=== PATIENT | male | born 1995 | race Caucasian/White ===

== ENCOUNTER 2016-11-06 09:38 | Inpatient (IN) | payer BC, OTHER ==
[~2016-11-06] VITALS: Ht 172.7 cm; Wt 61.2 kg
[2016-11-06] MEDS ORDERED: MAG HYDROX/AL HYDROX/SIMETH 30 ML LIQUID UDC PO PRN (22:45)
[2016-11-06] MEDS ORDERED: ONDANSETRON ODT 4 MG TAB.RAPDIS SL PRN (22:45)
[2016-11-06] MEDS ORDERED: LORAZEPAM 2 MG/1 ML VIAL IM PRN (22:45)
[2016-11-06] MEDS ORDERED: IBUPROFEN 600 MG TABLET PO PRN (22:45)
[2016-11-06] MEDS ORDERED: ONDANSETRON 4 MG/2 ML VIAL IM PRN (22:45)
[2016-11-06] MEDS ORDERED: HYDROXYZINE PAMOATE 25 MG CAPSULE PO PRN (22:45)
[2016-11-06] MEDS ORDERED: PROMETHAZINE HCL 25 MG TABLET PO PRN (22:45)
[2016-11-06] MEDS ORDERED: LOPERAMIDE HCL 2 MG CAPSULE PO PRN ×2 (22:45)
[2016-11-06] MEDS ORDERED: BUPRENORPHINE HCL 2 MG TAB.SUBL SL PRN (22:45)
[2016-11-06] MEDS ORDERED: diphenhydrAMINE 50 MG CAPSULE PO PRN (22:45)
[2016-11-06] MEDS ORDERED: MAGNESIUM HYDROXIDE 30 ML LIQUID UDC PO PRN (22:45)
[2016-11-06] MEDS ORDERED: DICYCLOMINE HCL 20 MG TABLET PO PRN (22:45)
[2016-11-06] MEDS ORDERED: LORAZEPAM 1 MG TABLET PO PRN (22:45)
[2016-11-06] MEDS ORDERED: MIRALAX 17 GM POWD.PACK PO PRN (22:45)
[2016-11-06] MEDS ORDERED: ACETAMINOPHEN 325 MG TABLET PO PRN (22:45)
[2016-11-06] MEDS ORDERED: METHOCARBAMOL 750 MG TABLET PO PRN (22:45)
--- NOTE | 2016-11-06 23:00 | NUR ---
PRE-ADMISSION NOTE: Patient assessed in intake office at 2300 on 11/06/2016. Patient is ambulatory with steady gate, stable, alert and oriented x4, speech is clear and soft. Patient states that he is here to safety detox from Heroin. Patient states that his last use was: Heroin IV : "0.2 grams at 0900 on 11/06/2016". Patient reports allergies to Compazine (Prochlorperazine). CIWA 7. Patient presented with anxiety, agitation, nervousness, tremors, barely sweating, restless legs, and fatigue. Patient denies SI/HI. Patient denies Seizures Hx. VS: T: 98'4; BP: 110/66; HR: 91; RR: 19; O2 SAT: 99%, pain level:"0/10". Patient instructed on unit protocol of vitals Q4H and COWS/CIWA assessments. Patient verbalized understanding and agreement. Patient also instructed on policy regarding destruction of any controlled substances/prescriptions brought to facility, and handling of all medications. Patient verbalized understanding and agreement. Will complete admission assessment when patient is brought up to unit.
[2016-11-06 23:05] LABS: *AMPHETAMINE, URINE NEGATIVE (NEGATIVE); *BARBITURATE, URINE NEGATIVE (NEGATIVE); *CANNABINOID, URINE POSITIVE (NEGATIVE); *COCCAINE, URINE NEGATIVE (NEGATIVE); *OPIATE, URINE POSITIVE (NEGATIVE); *PHENCYCLIDINE SCREEN,URINE NEGATIVE (NEGATIVE)
[2016-11-06 23:06] VITALS: BP 118/76
--- NOTE | 2016-11-06 23:06 | NUR ---
ADMISSION NOTE: New admission is a 21 years old male who arrived to [facility] at 2306 on 11/06/16 for medically supervised detox. Patient admitted under the care of Harish Philip MD. Pre-assessment completed in intake. Harish Philip MD assessed patient in intake office, and aware for patient condition.Patient reports allergies to Compazine. Patient placed on Full Code, Regular Diet, Fall and Seizures Precautions. Patients reports Seizures Hx " r/t epilepsy in 2013". UDS Test provided. Patient is ambulatory with steady gate, stable, AOx4, speech is soft and clear. Patient is 68 in, and weights 140lb. PMH: anxiety, depression, Epilepsy, Substance abuse. VS: T: 98'4; BP: 110/66; HR: 91; RR: 19; O2 SAT: 99%, pain level:"0/10". Respirations unlabored and even. Patient denies SOB and chest pain. Lungs Sounds are clear bilaterally. Bowel Sounds active in all x4 quadrants. Last Bowel Movement was "11/06/16t 1200". PERRLA, brisk capillary refill, hand brush filler equal and strong. Body check performed by BHT and skin check performed by nurse. Skin is intact, warm and dry to touch. Patient states that he is here to safety detox from Heroin. Patient appears mildly intoxicated and answers questions appropriately. CIWA 7. Patient presented with anxiety, agitation, nervousness, tremors, barely sweating, restless legs, and fatigue. Patient denies SI/HI. Patient states that he "relapsed 2 years ago ", and his substance use has steadily increased since that time. History of Substance Use: Heroin IV : "0.5 grams every day since 2014. Last use 0.2 gram at 0900 on 11/06/2016". Patient reports smoking 20 cigarettes daily since"2011". Written smoking cessation education provided. Patient Verbalizes understanding. Patient brought in home medications: Divalproex Sod. ER. PCP: "Urmila Hurst MD". Encouraged fluids as tolerated. Patient oriented to floor and room, explained how to use call light. Patient verbalized understanding. Safety measures on place. Call light within reach, bed in lowest position and locked, padded rails up bilaterally rails up bilaterally. Will continue to monitor closely. Addendum: 11/07/16 at 0447 by WILVER DYER RN COWS 7.
[2016-11-06] MEDS ORDERED: DIVA500T54 PO (23:17)
[2016-11-06 23:48] LABS: BASOPHILS % (AUTO) 0.4 % (0.0-2.0); EOSINOPHILS # (AUTO) 0.1 K/uL (0.0-0.7); EOSINOPHILS % (AUTO) 1.7 % (0.0-7.0); HEMATOCRIT 45.8 % (40-50); HEMOGLOBIN 15.7 G/DL (14.0-18.0); LYMPHOCYTES # (AUTO) 1.6 K/UL (0.8-4.8); LYMPHOCYTES % (AUTO) 21.5 % (20.5-51.5); MEAN CORPUSCULAR HEMOGLOBIN 29.8 UUG (27.0-31.0); MEAN CORPUSCULAR HGB CONC 34 g/dL (32.0-37.0); MEAN CORPUSCULAR VOLUME 86.7 FL (82.0-92.0); MONOCYTES # (AUTO) 0.4 K/UL (0.1-1.30); MONOCYTES % (AUTO) 5.2 % (0.0-11.0); NEUTROPHILS # (AUTO) 5.4 K/UL (1.8-8.9); NEUTROPHILS % (AUTO) 71.2 % (38.5-71.5); PLATELET COUNT (AUTO) 255 K/UL (150-450); RED BLOOD CELL COUNT(AUTO) 5.28 MIL/UL (4.7-6.1); WHITE BLOOD COUNT (AUTO) 7.5 K/UL (4.0-11.2)
[2016-11-06 23:54] LABS: BILIRUBIN,TOTAL 0.4 mg/dL (0.2-1.0); CREATININE 1.1 mg/dL (0.6-1.3); MAGNESIUM 2.1 mg/dL (1.8-2.4); POTASSIUM 4.2 mmol/L (3.5-5.1); TOTAL PROTEIN, SERUM 7.5 g/dL (6.4-8.2)
[2016-11-07] VITALS: BP 113/77
--- NOTE | 2016-11-07 00:32 | NUR ---
PRN BENADRYL 50 MG 1 CAP PO ADMINISTRATED Patient c/o insomnia and ask aid. PRN Benadryl 50 mg 1 cap PO administrated as ordered with full glass of water. Patient tolerated well. All needs met. Safety measures on place. Call light within reach, bed in lowest position and locked, padded rails up bilaterally rails up bilaterally. Will continue to monitor closely.
[2016-11-07] MEDS ORDERED: diphenhydrAMINE 50 MG CAPSULE ONE (00:41)
--- NOTE | 2016-11-07 01:32 | NUR ---
RE-ASSESSMENT Patient is sleeping. RR:16. Respirations even and unlabored. PRN Benadryl PO was effective. All needs met. Safety measures on place. Call light within reach, bed in lowest position and locked, padded rails up bilaterally rails up bilaterally. Will continue to monitor closely.
[2016-11-07 04:00] VITALS: BP 97/58
--- NOTE | 2016-11-07 06:58 | NUR ---
END OF SHIFT NOTE Patient endorsed to dayshift nurse in stable condition. Report given. Patient is a 21 years old male admitted to [facility] for Opioid dependence on 11/06/16, placed on PRN Medications. Patient admitted under the care of Dr. Morrell, Harish Diaz MD. Patient reports allergies to Compazine. Patient placed on Full Code, Regular Diet, Fall and Seizures Precautions. Patients reports Seizures Hx " r/t epilepsy in 2013". PMH: Anxiety, Depression, Epilepsy, Seizures r/t Epilepsy, Substance abuse, Tobacco dependence. VS at 0400: T: 98'7; BP: 97/58; HR: 75; RR: 12; O2 SAT: 100%, pain level:"0/10". Respirations unlabored and even. Patient denies SOB and chest pain. Skin is intact, warm and dry to touch. Patient appears mildly intoxicated. Last COWS decreased from 7 to 5 at 0400 . Patient presented with anxiety, agitation, nervousness, tremors, barely sweating, restless legs, and fatigue. Patient denies SI/HI. Patient states that he "relapsed 2 years ago ", and his substance use has steadily increased since that time. History of Substance Use: Heroin IV : "0.5 grams every day since 2014. Last used 0.2 gram at 0900 on 11/06/2016". Patient reports smoking 20 cigarettes daily since "2011". Written smoking cessation education provided. Patient Verbalizes understanding. Encouraged fluids as tolerated. PRN Benadryl PO administrated for insomnia was effective. Patient slept 4 hours 30 minutes, intake 300 ml, voided x1. All needs met. Safety measures on place. Call light within reach, bed in lowest position and locked, padded rails up bilaterally rails up bilaterally.
--- NOTE | 2016-11-07 07:10 | NUR ---
Start of shift note Pt was admitted for opiate dependence. Pt has a PMHx of epilepsy, anxiety and depression. Pt is a full code, on a regular diet and reports an allergy to compazine. Pt is on fall and seizure precautions. Pt had one PRN medication per the prior nurse. Pt is currently resting in bed, pt has no complaints at this time. Pt is on PRN medication at this time. Will continue to monitor pt. All needs addressed at this time. Bed is locked in a low position, call light within reach, side rails up x 2.
[2016-11-07 08:00] VITALS: BP 146/73
[2016-11-07] MEDS ORDERED: TUBERCULIN,PURIF.PROT.DERIV. 5 TU/0.1 ML TEST ID ONE (09:00)
[2016-11-07] MEDS ORDERED: PATIENT MAY USE OWN MED- MD OK PO SCH (09:00)
[2016-11-07] MEDS: MULTIVITAMINS,THERAPEUTIC TABLET PO SCH (10:39)
[2016-11-07] MEDS: BUPRENORPHINE HCL 2 MG TAB.SUBL SL SCH ×3 (10:40→21:16)
--- NOTE | 2016-11-07 10:46 | NUR ---
Positive Benzo/Cannibis Pt states that he took 1mg of xanax yesterday and that he smokes "an 8 ball of marijuana daily". Pt states that he takes xanax "very infrequently and I haven't taken it for a long time".
--- NOTE | 2016-11-07 10:54 | NUR ---
PRN administration Pt c/o anxiety, administered PRN vistaril per MD order. Will continue to monitor pt.
--- NOTE | 2016-11-07 11:54 | NUR ---
Reassessment Pt states that the vistaril was effective in alleviating his high level of anxiety. Pt states that the medication was slightly effective. Will continue to monitor pt. Pt is ambulating around the unit.
[2016-11-07 12:00] VITALS: BP 134/84
--- NOTE | 2016-11-07 15:23 | NUR ---
MD communication Pt states that he would like a medication for sleeping, notified Dr Cooper, ordered trazodone 50mg PO QHSPRN. Orders entered, unable to enter orders.
[2016-11-07] MEDS ORDERED: TRAZODONE 50 MG TABLET PO PRN (15:30)
[2016-11-07 17:04] VITALS: BP 123/79
[2016-11-07] MEDS: CLONIDINE HCL 0.1 MG TABLET PO PRN (17:29)
--- NOTE | 2016-11-07 17:34 | NUR ---
PRN administration PRN administration Pt c/o muscle aches 9/10 and anxiety, administered PRN clonidine and robaxin per MD order. Will continue to monitor pt. All other needs addressed at this time.
--- NOTE | 2016-11-07 18:34 | NUR ---
Reassessment Pt states that his pain level is down to a 3/10 and that his anxiety level is better. Pt states that the medications were effective. Will continue to monitor pt.
--- NOTE | 2016-11-07 19:00 | NUR ---
End of shift note Pt was admitted for opiate dependence. Pt has a PMHx of epilepsy and Dr Morrell is restarting his depakote tonight. Pt 5 day subutex taper was initiated during the shift. Pt is tolerating well. Pt had a PRN vistrail, a PRN clonidine and a PRN robaxin with effectiveness. Dr Cooper was called during the shift, and pt has been ordered PRN trazodone. Pt drank 2300 ml of fluids during the shift, ate none of his breakfast, ate none of lunch, and 75% of dinner. Pt had 4 voids and 1 BMs during the shift. Pt states that he feels comfortable at this time. Pt has a recent COWS of 7 at 1600. Will endorse SBAR to oncoming shift. All needs addressed at this time.
[2016-11-07 20:00] VITALS: BP 117/78
--- NOTE | 2016-11-07 20:00 | NUR ---
Start of Shift Pt is a 21 year old male admitted for Opiate dependence, placed on 5 day Subutex taper. Pt reported using Heroin 0.5g/daily x3 months, Marijuana " a bowl a day" and Xanax intermittently. PMH: depression, anxiety and Epilepsy - pt is on Depakote. Pt is allergic to Compazine, regular diet, fall/seizure precautions and full code. Upon assessment, pt reports feeling anxious, restless, muscle/joint aches throughout body, chills, skin is flushed/clammy, respirations even/unlabored, denies SOB/chest pain, denies n/v/d, bowel sounds x4, abdomen soft. Safety measures in place, call light within reach, side rails up x2, bed locked and in low position. Will continue to monitor.
--- NOTE | 2016-11-07 21:25 | NUR ---
PRN Administration Pt reports difficulty falling asleep, requests aid. Trazodone 50mg PRN administered. Safety measures in place, will continue to monitor.
--- NOTE | 2016-11-07 22:25 | NUR ---
PRN Reassessment Upon reassessment, pt is sleeping, respirations even/unlabored. No s/s of acute distress noted. Safety measures in place. Will continue to monitor.
[2016-11-08] VITALS: BP 120/75
[2016-11-08 04:00] VITALS: BP 112/79
--- NOTE | 2016-11-08 04:00 | NUR ---
Vital Signs BP 112/79, pulse 77, resp 16, SpO2 97%, temp 98.1, no pain 0/10 COWS deferred d/t pt sleeping, to assess while pt is awake as ordered. Safety measures in place. Will continue to monitor.
--- NOTE | 2016-11-08 07:00 | NUR ---
End of Shift Pt is a 21 year old male admitted for Opiate dependence, placed on 5 day Subutex taper. Pt reported using Heroin 0.5g/daily x3 months, Marijuana " a bowl a day" and Xanax intermittently. PMH: depression, anxiety and Epilepsy - pt is on Depakote. Pt is allergic to Compazine, regular diet, fall/seizure precautions and full code. During shift, pt reported feeling anxious, restless, muscle/joint aches throughout body, chills, skin is flushed/clammy - scheduled taper medications administered, COWS 7. Trazodone 50mg PRN administered for sleep, effective. Pt slept for 9 hours, intake of 355 ml PO, voids x2 and stool x0 . Safety measures in place, call light within reach, side rails up x2, bed locked and in low position. Endorsed to day shift nurse.
--- NOTE | 2016-11-08 07:10 | NUR ---
Start Of Shift Report received. Pt is a 21 year old male admitted for Opiate dependence. PMH: depression, anxiety and Epilepsy - pt is on Depakote. Pt is full code regular diet on fall and seizure precautions. Pt is allergic to Compazine. Pt placed on a 5 day Subutex taper. Last COWS 7 taken at 0400. Pt receive PRN Trazodone 50mg for sleep, medication effective per security shift manager nurse. Pt slept for a total of 9 hours. Safety measures in place, call light within reach, side rails up x2, bed locked and in low position. Will continue to monitor and provide care.
[2016-11-08 08:00] VITALS: BP 110/71
[2016-11-08 08:09] LABS: HEPATITIS B SURFACE AG Negative (Negative)
[2016-11-08] MEDS ORDERED: BUPRENORPHINE HCL 2 MG TAB.SUBL SL SCH (09:00)
[2016-11-08] MEDS: MULTIVITAMINS,THERAPEUTIC TABLET PO SCH (09:29)
[2016-11-08] MEDS ORDERED: BACLOFEN 10 MG TABLET PO ONE (10:45)
[2016-11-08] MEDS ORDERED: BUPRENORPHINE HCL 2 MG TAB.SUBL SL ONE (10:45)
[2016-11-08] MEDS ORDERED: GABAPENTIN 300 MG CAPSULE PO ONE (10:45)
[2016-11-08] MEDS ORDERED: KETOROLAC TROMETHAMINE 30 MG INJ IM PRN (11:15)
[2016-11-08 12:00] VITALS: BP 116/78
[2016-11-08] MEDS ORDERED: BACLOFEN 10 MG TABLET PO SCH (15:00)
[2016-11-08] MEDS: BACLOFEN 20 MG TABLET PO SCH ×2 (15:45→20:31)
[2016-11-08] MEDS: BUPRENORPHINE HCL 2 MG TAB.SUBL SL SCH ×2 (15:45→20:31)
[2016-11-08] MEDS: GABAPENTIN 300 MG CAPSULE PO SCH ×2 (15:45→20:31)
[2016-11-08 16:00] VITALS: BP 119/70
--- NOTE | 2016-11-08 19:13 | NUR ---
End Of Shift Report given. Pt is a 21 year old male admitted for Opiate dependence. PMH: depression, anxiety and Epilepsy - pt is on Depakote. Pt is full code regular diet on fall and seizure precautions. Pt is allergic to Compazine. Pt placed on a 5 day Subutex taper, VS monitored closely q 4 hours. Withdrawal symptoms were closely monitored. Initial COWS 6. Patient encouraged adequate PO fluid intake as tolerated. Patient presented with tremors and anxiety during the day. Last COWS 5. Per patient, Subutex has been helping him with his withdrawal symptoms. Pt ate all of his meals. No PRN medications given during the day. Patient encouraged to attend group therapies/sessions to learn new coping skills to recent relapse, patient denies SI/HI. Participated in group and therapy sessions. All needs met and attended.
[2016-11-08 20:00] VITALS: BP 146/79
--- NOTE | 2016-11-08 20:00 | NUR ---
Start of Shift Pt is a 21 year old male admitted for Opiate dependence, placed on 5 day Subutex taper. Pt reported using Heroin 0.5g/daily x3 months, Marijuana " a bowl a day" and Xanax intermittently. PMH: depression, anxiety and Epilepsy - pt is on Depakote. Pt is allergic to Compazine, regular diet, fall/seizure precautions and full code. Upon assessment, pt reports feeling anxiety, muscle aches throughout body, skin is flushed/clammy, respirations even/unlabored, denies SOB/chest pain, denies n/v/d, bowel sounds x4, abdomen soft. Safety measures in place, call light within reach, side rails up x2, bed locked and in low position. Will continue to monitor.
[2016-11-08] MEDS: QUETIAPINE FUMARATE 25 MG TABLET PO PRN (20:31)
--- NOTE | 2016-11-08 20:31 | NUR ---
PRN Administration Pt requests aid to help him sleep. Seroquel 50mg PRN administered. Safety measures in place. Will continue to monitor.
--- NOTE | 2016-11-08 21:31 | NUR ---
PRN Reassessment Pt is in bed, eyes closed, respirations even/unlabored, no s/s of acute distress noted. Safety measures in place, Will continue to monitor.
[2016-11-09] VITALS: BP 124/78
--- NOTE | 2016-11-09 | NUR ---
Vital Signs BP 124/78, pulse 79, resp 18, SpO2 96%, temp 98.1, no pain 0/10 COWS deferred d/t pt sleeping, to assess while pt is awake as ordered. Safety measures in place. Will continue to monitor.
[2016-11-09 04:00] VITALS: BP 119/77
--- NOTE | 2016-11-09 04:00 | NUR ---
Vital Signs BP 119/77, pulse 64, resp 16, SpO2 96%, temp 97.8, no pain 0/10 COWS deferred d/t pt sleeping, to assess while pt is awake as ordered. Safety measures in place. Will continue to monitor.
--- NOTE | 2016-11-09 07:00 | NUR ---
End of Shift Pt is a 21 year old male admitted for Opiate dependence, placed on 5 day Subutex taper. Pt reported using Heroin 0.5g/daily x3 months, Marijuana " a bowl a day" and Xanax intermittently. PMH: depression, anxiety and Epilepsy - pt is on Depakote. Pt is allergic to Compazine, regular diet, fall/seizure precautions and full code. During shift, pt presented with feelings of anxiety, muscle aches throughout body, skin is flushed/clammy scheduled taper medications administered, effective in management of s/s of withdrawal as reported per pt, COWS 7 . Seroquel 50mg PRN administered, effective. Pt slept for 6 hours, intake of 1410 ml PO, voids x4 and stool x0. Safety measures in place, call light within reach, side rails up x2, bed locked and in low position. Endorsed to day shift nurse.
--- NOTE | 2016-11-09 07:15 | NUR ---
start of shift note:received pt from shift boss nurse, pt is in stable condition at this time. no s/s of pain or discomfort. pt is admitted top [facility] for opiate withdrawal/dependence. pts last cows 7. pt tolerating subutex taper well no A/R NOTED. will continue to monitor pt for any changes and will continue to monitor for any changes
[2016-11-09 08:17] VITALS: BP 127/84
[2016-11-09] MEDS: MULTIVITAMINS,THERAPEUTIC TABLET PO SCH (09:19)
[2016-11-09] MEDS: GABAPENTIN 300 MG CAPSULE PO SCH ×3 (09:19→20:59)
[2016-11-09] MEDS: BUPRENORPHINE HCL 2 MG TAB.SUBL SL SCH ×3 (09:19→20:59)
[2016-11-09] MEDS: BACLOFEN 20 MG TABLET PO SCH ×3 (09:19→20:59)
[2016-11-09 13:00] VITALS: BP 136/82
[2016-11-09 17:29] VITALS: BP 100/66
--- NOTE | 2016-11-09 18:29 | NUR ---
end of shift note: pt is in stable condition at this time, pt is admitted to [facility] for opiate/benzo withdrawal/dependence. pt's last cows score 4. pt tolerated taper well. no a/r noted. pt joined all groups and activities throughout the shift. will endorse to to warehouse supervisor 3rd shift nurse.
[2016-11-09 20:00] VITALS: BP 126/89
--- NOTE | 2016-11-09 20:00 | NUR ---
Start of Shift Pt is a 21 year old male admitted for Opiate dependence, placed on 5 day Subutex taper. Pt reported using Heroin 0.5g/daily x3 months, Marijuana " a bowl a day" and Xanax intermittently. PMH: depression, anxiety and Epilepsy - pt is on Depakote. Pt is allergic to Compazine, regular diet, fall/seizure precautions and full code. Upon assessment, pt reports muscle aches throughout body, nasal stuffiness noted with teary eyes, skin is flushed/clammy, respirations even/unlabored, denies SOB/chest pain, denies n/v/d, bowel sounds x4, abdomen soft. Safety measures in place, call light within reach, side rails up x2, bed locked and in low position. Will continue to monitor.
[2016-11-09] MEDS: QUETIAPINE FUMARATE 25 MG TABLET PO PRN (21:22)
--- NOTE | 2016-11-09 21:22 | NUR ---
PRN Administration Pt requests to help him sleep. Seroquel 50mg PRN administered. Safety measures in place. Will continue to monitor.
--- NOTE | 2016-11-09 22:22 | NUR ---
PRN Reassessment Upon reassessment, pt is in bed, sleeping respirations even/unlabored , no s/s of acute distress noted. Safety measures in place, will continue to monitor.
[2016-11-10] VITALS: BP 129/74
--- NOTE | 2016-11-10 | NUR ---
Vital Signs BP 129/74, pulse 76, resp 16, SpO2 99%, temp 97.8, no pain 0/10 COWS deferred d/t pt sleeping, to assess while pt is awake as ordered. Safety measures in place. Will continue to monitor.
[2016-11-10 04:00] VITALS: BP 110/65
--- NOTE | 2016-11-10 04:00 | NUR ---
Vital Signs BP 110/65, pulse 64, resp 16, SpO2 99%, temp 97.9, no pain 0/10 COWS deferred d/t pt sleeping, to assess while pt is awake as ordered. Safety measures in place. Will continue to monitor.
--- NOTE | 2016-11-10 07:00 | NUR ---
End of Shift Pt is a 21 year old male admitted for Opiate dependence, placed on 5 day Subutex taper. Pt reported using Heroin 0.5g/daily x3 months, Marijuana " a bowl a day" and Xanax intermittently. PMH: depression, anxiety and Epilepsy - pt is on Depakote. Pt is allergic to Compazine, regular diet, fall/seizure precautions and full code. During shift, pt reported muscle aches throughout body, nasal stuffiness noted with teary eyes, skin is flushed/clammy - scheduled taper medications administered, effective in management of s/s of withdrawal as reports per pt, COWS 4. Seroquel 50mg PRN administered for slept, effective. Pt slept for 6 hours, intake of 710 ml PO, voids x1 and stool x0. Safety measures in place, call light within reach, side rails up x2, bed locked and in low position. Endorsed to day shift nurse.
--- NOTE | 2016-11-10 07:05 | NUR ---
Start of Shift Endorsement received from nightshift nurse. Pt is a 21 y/o male admitted for heroin dependence. PT has been placed on a 5 day Subutex taper. PT is tolerating the taper and mildly withdrawing at this time AEB COWS 4 at 0400. Pt received PRN Seroquel during nightshift. Pt reports sleeping 6 hours. VS WNL. Full Code. Pt is expected to complete the Subutex taper today. PT is alert and oriented x4. Pt is in STABLE condition at this time. Remains compliant with medication and diet regimen. All needs have been met, All safety measures in place per hospital policy. Bed in lowest position, side rails up x2, call-light within reach. Will continue to monitor
[2016-11-10 08:00] VITALS: BP 100/60
[2016-11-10] MEDS ORDERED: BUPRENORPHINE HCL 2 MG TAB.SUBL SL SCH (09:00)
[2016-11-10] MEDS: BACLOFEN 20 MG TABLET PO SCH ×3 (09:07→20:38)
[2016-11-10] MEDS: GABAPENTIN 300 MG CAPSULE PO SCH ×3 (09:07→20:38)
[2016-11-10] MEDS: MULTIVITAMINS,THERAPEUTIC TABLET PO SCH (09:07)
[2016-11-10] MEDS ORDERED: QUET25TA PO (10:15)
[2016-11-10] MEDS ORDERED: HYDR-3895 PO (10:15)
[2016-11-10] MEDS ORDERED: BACL20TA PO (10:15)
[2016-11-10] MEDS ORDERED: DICY20TA28 PO (10:15)
[2016-11-10] MEDS ORDERED: IBUP-1955 PO (10:15)
[2016-11-10] MEDS ORDERED: GABA-534 PO (10:15)
[2016-11-10] MEDS ORDERED: MULT-24 PO (10:15)
[2016-11-10 12:00] VITALS: BP 125/75
[2016-11-10 16:00] VITALS: BP 123/81
[2016-11-10] MEDS: CLONIDINE HCL 0.1 MG TABLET PO PRN (16:47)
--- NOTE | 2016-11-10 18:40 | NUR ---
End of Shift Endorsement given to nightshift nurse. Pt is a 21 y/o male admitted for heroin dependence. PT has been placed on a 5 day Subutex taper. PT is tolerating the taper and mildly withdrawing at this time AEB COWS 3 at 1600. Pt received PRN Clonidine for cold chills and sweats, medication was effective per pt. PT has completed the taper and has been scheduled to be discharged on 11/11/16. All documentation has been completed, discharge educated has been provided. Urine has been provided for UDS. VS WNL. Full Code. PT is alert and oriented x4. Pt is in STABLE condition at this time. Remains compliant with medication and diet regimen. All needs have been met, All safety measures in place per hospital policy. Bed in lowest position, side rails up x2, call-light within reach. Will continue to monitor
--- NOTE | 2016-11-10 19:05 | NUR ---
Start of Shift Patient Received. Patient is in activities room participating in group meeting. Patient is a 21 year old male that was admitted on 11/06/16 for Opiate Withdrawal under the care of Dr. Morrell. Patient verbalizes no known allergy to Compazine, wishes to be full code, following a regular diet, placed on fall and seizure precautions, skin noted intact. Patients past medical history noted as as epilepsy with current treatment plan of Depakote, depression, and anxiety. Per endorsement, patient is set for discharge tomorrow 11/11/16. No PRN medications administered. All needs attended to promptly. Will continue plan of care as ordered.
[2016-11-10 20:16] VITALS: BP 126/76
[2016-11-10] MEDS: QUETIAPINE FUMARATE 25 MG TABLET PO PRN (20:38)
--- NOTE | 2016-11-10 20:40 | NUR ---
PRN Medication Administration Patient verbalizing inability of falling asleep and is requesting sleep aid. All non pharmacological interventions noted not effective. PRN Seroquel administered as per order. Will continue to monitor.
--- NOTE | 2016-11-10 21:40 | NUR ---
PRN Medication Reassessment Patient seen returning from smoking patio and is able to verbalize "the Seroquel really helps me relax enough so I can go to sleep." PRN Seroquel noted to be effective. Will continue to monitor.
[2016-11-10 21:41] LABS: *AMPHETAMINE, URINE NEGATIVE (NEGATIVE); *BARBITURATE, URINE NEGATIVE (NEGATIVE); *CANNABINOID, URINE POSITIVE (NEGATIVE); *COCCAINE, URINE NEGATIVE (NEGATIVE); *OPIATE, URINE NEGATIVE (NEGATIVE); *PHENCYCLIDINE SCREEN,URINE NEGATIVE (NEGATIVE)
[2016-11-11 00:15] VITALS: BP 106/67
[2016-11-11 04:10] VITALS: BP 102/72
--- NOTE | 2016-11-11 07:03 | NUR ---
End of Shift Patient is in bed sleeping. Breathing even and non labored. No signs of pain or discomfort noted. Patient is a 21 year old male admitted on 11/06/16 for Opiate Dependence and received a 5 day Subutex taper. Patient has completed the taper and is set for discharge today 11/11/16. Patient was given PRN Seroquel for sleep with medication noted to be effective. Patient noted to be compliant with medication and tolerated plan of care well. Will endorse to continue plan of care as ordered.
[2016-11-11 08:00] VITALS: BP 108/52
--- NOTE | 2016-11-11 08:05 | NUR ---
START OF SHIFT: RECEIVED PT A/OX4. HE STATES HE FEELS A LIITL ANXIETY ABOUT HIS DISCHARGE THIS AM. BUT FEELS ENTHUSIASTIC ABOUT RECOVERY. COWS 1. SUBUTEX TAPER COMPLETED. HE DENIES PAIN. HE STATES HE IS EATING 100% OF MEALS. DISCHARGE PLANNING IN PROGRESS. WILL CONTINUE TO MONITOR AND OFFER SUPPORT.
[2016-11-11] MEDS: GABAPENTIN 300 MG CAPSULE PO SCH (08:39)
[2016-11-11] MEDS: BACLOFEN 20 MG TABLET PO SCH (08:39)
[2016-11-11] MEDS: MULTIVITAMINS,THERAPEUTIC TABLET PO SCH (08:40)
--- NOTE | 2016-11-11 09:40 | NUR ---
DISCHARGE: PT IS A/O X 4. HE DENIES S/I AND H/I. HE STATES HE FEELS MOTIVATED TO STAY CLEAN./ EDUCATED PT ON DISCHARGE INSTRUCTIONS AND MEDS. PT EXPRESSED VERBAL UNDERSTANDING OF EDUCATION. BELONGINGS RETURNED. PT WAS MEDICALLY CLEARED FOR DISCHARGE. HATCH BOSS ESCORTED PT TO [facility] WHERE HE WAS TRANSPORTED BY [facility] TO [facility] IN [place].
== END 2016-11-11 09:35 | disposition other institution (70) | DRG 895 ==
LOC: SRC 22:18
PROVIDERS: ADMIT Internal Medicine; ATTEND Internal Medicine
PROC: HZ2ZZZZ Detoxification Services for Substance Abuse Treatment (ICD-10-PCS; principal; 2016-11-06)
PROC: HZ41ZZZ Group Counseling for Substance Abuse Treatment, Behavioral (ICD-10-PCS; 2016-11-09)
DX: F11.23 Opioid dependence with withdrawal (principal); G40.919 Epilepsy, unspecified, intractable, without status epilepticus; F41.9 Anxiety disorder, unspecified; F17.210 Nicotine dependence, cigarettes, uncomplicated; F12.90 Cannabis use, unspecified, uncomplicated; F13.10 Sedative, hypnotic or anxiolytic abuse, uncomplicated; Z79.899 Other long term (current) drug therapy; F32.9 Major depressive disorder, single episode, unspecified
CPT/HCPCS: 36415; 70030-TC; 80307; 80346; 80349; 80361; 83735; 85025; 86580; 86592; 86705; 86803; 87340; 87806; A4663; Q0163